=== PATIENT | male | born 1980 | race African-American/Black ===

== ENCOUNTER 2017-09-01 01:26 | Emergency (ER) | payer OTHER ==
[~2017-09-01] VITALS: Ht 188 cm; Wt 86.4 kg
[2017-09-01 01:31] VITALS: BP 195/90; PULSE 113; RESP 20; TEMP 98.8; O2SAT 98
[2017-09-01 07:31] LABS: BASOPHIL % 0.5 % (0.0-2.0); EOSINOPHIL # 0.1 TH/MM3 (0-0.4); HEMATOCRIT 46.1 % (39.0-51.0); HEMOGLOBIN 15.8 GM/DL (13.0-17.0); LYMPH % 28.1 % (9.0-44.0); LYMPHOCYTE # 1.4 TH/MM3 (1.0-4.8); MEAN CORPUSCULAR HEMOGLOBIN 30.6 PG (27.0-34.0); MEAN CORPUSCULAR HGB CONC 34.3 % (32.0-36.0); MEAN PLATELET VOLUME 8.3 FL (7.0-11.0); MONOCYTE # 0.6 TH/MM3 (0-0.9); NEUT % 58.4 % (16.0-70.0); PLATELET COUNT 212 TH/MM3 (150-450); RED BLOOD COUNT 5.18 MIL/MM3 (4.50-5.90); RED CELL DISTRIBUTION WIDTH 13.8 % (11.6-17.2); WHITE BLOOD COUNT 5.2 TH/MM3 (4.0-11.0)
[2017-09-01 07:35] VITALS: BP 175/87; PULSE 99; RESP 20; O2SAT 95
--- NOTE | 2017-09-01 07:47 | PD ---
HPI Chief Complaint: Psychiatric Symptoms Time Seen by Provider: 07:30 Travel History International Travel<30 days: No Contact w/Intl Traveler<30days: No Traveled to known affect area: No History of Present Illness HPI 36-year-old -[place] male with history of bipolar disease, is brought in under the [employer] act with reports of the patient stating he is being followed , and he is asking for help and wants to talk to someone. Patient denies any medical problems at this time. He is allergic to dust. PFSH Past Medical History Depression: Yes (as a child) Tetanus Vaccination: Unknown Influenza Vaccination: No Social History Alcohol Use: Yes Tobacco Use: Yes Substance Use: Yes (marijuana/ecstacy 08/31/17 last used) Allergies-Medications (Allergen,Severity, Reaction): Uncoded Allergies: dust (Allergy, Mild, 09/01/17) Reported Meds & Prescriptions Reported Meds & Active Scripts Active No Active Prescriptions or Reported Medications Review of Systems Except as stated in HPI: all other systems reviewed are Neg General / Constitutional: No: Fever Eyes: No: Visual changes HENT: No: Headaches Cardiovascular: No: Chest Pain or Discomfort Respiratory: No: Shortness of Breath Gastrointestinal: No: Abdominal Pain Genitourinary: No: Dysuria Musculoskeletal: No: Pain Skin: No Rash Neurologic: No: Weakness Psychiatric: No: Depression Endocrine: No: Polydipsia Hematologic/Lymphatic: No: Easy Bruising Physical Exam Narrative GENERAL: Patient appears in no acute distress. SKIN: Warm and dry. Normal color. Normal turgor. No signs of trauma HEAD: Atraumatic. Normocephalic. EYES: Pupils equal and round. No scleral icterus. No injection or drainage. ENT: No nasal bleeding or discharge. Mucous membranes pink and moist. Pharynx is clear. NECK: Trachea midline. Supple CARDIOVASCULAR: Regular rate and rhythm. RESPIRATORY: No accessory muscle use. Clear to auscultation. Breath sounds equal bilaterally. MUSCULOSKELETAL: Extremities without clubbing, cyanosis, or edema. No obvious deformities. NEUROLOGICAL: Awake and alert. No obvious cranial nerve deficits. Motor grossly within normal limits. Five out of 5 muscle strength in the arms and legs. Normal speech. Data Data Last Documented VS Vital Signs Date Time Temp Pulse Resp B/P (MAP) Pulse Ox O2 Delivery O2 Flow Rate FiO2 09/01/17 01:31 98.8 113 20 195/90 (125) 98 Orders Orders Complete Blood Count With Diff (09/01/17 05:22) Comprehensive Metabolic Panel (09/01/17 05:22) Thyroid Stimulating Hormone (09/01/17 05:22) Psych Screen (09/01/17 05:22) Drug Screen, Random Urine (09/01/17 05:22) Labs Laboratory Tests Test 09/01/17 05:25 09/01/17 07:10 Urine Opiates Screen NEG Urine Barbiturates Screen NEG Urine Amphetamines Screen POS Urine Benzodiazepines Screen NEG Urine Cocaine Screen POS Urine Cannabinoids Screen POS White Blood Count 5.2 TH/MM3 Red Blood Count 5.18 MIL/MM3 Hemoglobin 15.8 GM/DL Hematocrit 46.1 % Mean Corpuscular Volume 89.0 FL Mean Corpuscular Hemoglobin 30.6 PG Mean Corpuscular Hemoglobin Concent 34.3 % Red Cell Distribution Width 13.8 % Platelet Count 212 TH/MM3 Mean Platelet Volume 8.3 FL Neutrophils (%) (Auto) 58.4 % Lymphocytes (%) (Auto) 28.1 % Monocytes (%) (Auto) 11.0 % Eosinophils (%) (Auto) 2.0 % Basophils (%) (Auto) 0.5 % Neutrophils # (Auto) 3.0 TH/MM3 Lymphocytes # (Auto) 1.4 TH/MM3 Monocytes # (Auto) 0.6 TH/MM3 Eosinophils # (Auto) 0.1 TH/MM3 Basophils # (Auto) 0.0 TH/MM3 CBC Comment DIFF FINAL Differential Comment MDM Medical Decision Making Medical Screen Exam Complete: Yes Emergency Medical Condition: Yes Differential Diagnosis Psychosis. Bipolar. Be act. Narrative Course Psychiatric labs ordered as per protocol. Labs are within normal limits. Patient medically cleared for psychiatric evaluation. Psych screen is ordered. Scripts No Active Prescriptions or Reported Meds Condition: Stable Henyr Kimble Sep 01, 2017 07:47
[2017-09-01 08:09] LABS: ALBUMIN 4.3 GM/DL (3.4-5.0); AST (GOT) 24 U/L (15-37); BICARBONATE 27.9 MEQ/L (21.0-32.0); BLOOD UREA NITROGEN 8 MG/DL (7-18); CALCIUM 8.9 MG/DL (8.5-10.1); CHLORIDE 102 MEQ/L (98-107); CREATININE 0.97 MG/DL (0.60-1.30); GLOMERULAR FILTRATION RATE 105 ML/MIN (>89); GLUCOSE,RANDOM 88 MG/DL (74-106); SODIUM (NA) 137 MEQ/L (136-145)
[2017-09-01 08:10] LABS: ALT (GPT) 23 U/L (12-78)
[2017-09-01 08:19] LABS: ALKALINE PHOSPHATASE 63 U/L (45-117); TOTAL BILIRUBIN ADULT 1.1 MG/DL (0.2-1.0); TOTAL PROTEIN 8.2 GM/DL (6.4-8.2)
[2017-09-01 16:59] VITALS: BP 126/71; PULSE 80; RESP 20; TEMP 98.7; O2SAT 95
[2017-09-01] MEDS ORDERED: diphenhydrAMINE HCL 50 MG/ML VIAL ONE (19:52)
[2017-09-01] MEDS ORDERED: LORazepam 2 MG/ML VIAL ONE (19:52)
[2017-09-01] MEDS ORDERED: ZIPRASIDONE MESYLATE 20 MG VIAL IM ONE ×2 (19:52→20:00)
[2017-09-01] MEDS ORDERED: diphenhydrAMINE HCL 50 MG/ML VIAL IM ONE (20:00)
[2017-09-01] MEDS ORDERED: LORazepam 2 MG/ML VIAL IM ONE (20:08)
[2017-09-02 01:16] VITALS: BP 131/80; PULSE 83; RESP 18; TEMP 98.6; O2SAT 99
[2017-09-02 10:47] VITALS: BP 111/70; PULSE 103; RESP 18; TEMP 98.7; O2SAT 100
--- NOTE | 2017-09-02 12:31 | PD ---
Physical Exam Date Seen by Provider: Sep 02, 2017 Time Seen by Provider: 12:30 Narrative 36-year-old -[place] male previously cleared under the Be act for psychiatric evaluation, has been seen and evaluated by psychiatric staff and is deemed appropriate for transfer to the [facility]. Patient is going to be transferred directly to the clinic. He remains medically stable at this time. Data Data Last Documented VS Vital Signs Date Time Temp Pulse Resp B/P (MAP) Pulse Ox O2 Delivery O2 Flow Rate FiO2 09/02/17 10:47 98.7 103 18 111/70 (84) 100 Room Air Orders Orders Complete Blood Count With Diff (09/01/17 05:22) Comprehensive Metabolic Panel (09/01/17 05:22) Thyroid Stimulating Hormone (09/01/17 05:22) Psych Screen (09/01/17 05:22) Drug Screen, Random Urine (09/01/17 05:22) Diet Regular Basic (09/01/17 Breakfast) Diet Regular Basic (09/01/17 Lunch) Diet Regular Basic (09/01/17 Dinner) Lorazepam Inj (Ativan Inj) (09/01/17 19:52) Diphenhydramine Inj (Benadryl Inj) (09/01/17 19:52) Ziprasidone Inj (Geodon Inj) (09/01/17 19:52) Ziprasidone Inj (Geodon Inj) (09/01/17 20:00) Diphenhydramine Inj (Benadryl Inj) (09/01/17 20:00) Lorazepam Inj (Ativan Inj) (09/01/17 20:08) Diet Regular Basic (09/02/17 Breakfast) Diet Regular Basic (09/02/17 Lunch) Labs Laboratory Tests Test 09/01/17 05:25 09/01/17 07:10 Urine Opiates Screen NEG Urine Barbiturates Screen NEG Urine Amphetamines Screen POS Urine Benzodiazepines Screen NEG Urine Cocaine Screen POS Urine Cannabinoids Screen POS White Blood Count 5.2 TH/MM3 Red Blood Count 5.18 MIL/MM3 Hemoglobin 15.8 GM/DL Hematocrit 46.1 % Mean Corpuscular Volume 89.0 FL Mean Corpuscular Hemoglobin 30.6 PG Mean Corpuscular Hemoglobin Concent 34.3 % Red Cell Distribution Width 13.8 % Platelet Count 212 TH/MM3 Mean Platelet Volume 8.3 FL Neutrophils (%) (Auto) 58.4 % Lymphocytes (%) (Auto) 28.1 % Monocytes (%) (Auto) 11.0 % Eosinophils (%) (Auto) 2.0 % Basophils (%) (Auto) 0.5 % Neutrophils # (Auto) 3.0 TH/MM3 Lymphocytes # (Auto) 1.4 TH/MM3 Monocytes # (Auto) 0.6 TH/MM3 Eosinophils # (Auto) 0.1 TH/MM3 Basophils # (Auto) 0.0 TH/MM3 CBC Comment DIFF FINAL Differential Comment Blood Urea Nitrogen 8 MG/DL Creatinine 0.97 MG/DL Random Glucose 88 MG/DL Total Protein 8.2 GM/DL Albumin 4.3 GM/DL Calcium Level 8.9 MG/DL Alkaline Phosphatase 63 U/L Aspartate Amino Transf (AST/SGOT) 24 U/L Alanine Aminotransferase (ALT/SGPT) 23 U/L Total Bilirubin 1.1 MG/DL Sodium Level 137 MEQ/L Potassium Level 3.6 MEQ/L Chloride Level 102 MEQ/L Carbon Dioxide Level 27.9 MEQ/L Anion Gap 7 MEQ/L Estimat Glomerular Filtration Rate 105 ML/MIN Thyroid Stimulating Hormone 3rd Gen 1.400 uIU/ML MDM Medical Record Reviewed: Yes Supervised Visit with BRITTANY: Yes Narrative Course 36-year-old -[place] male previously cleared under the Be act for psychiatric evaluation, has been seen and evaluated by psychiatric staff and is deemed appropriate for transfer to the [facility]. Patient is going to be transferred directly to the clinic. He remains medically stable at this time. Referrals: [facility] Patient Instructions: General Instructions Scripts No Active Prescriptions or Reported Meds Disposition: 70 TRANSFER TO OTHER FACILITY Condition: Stable Henry Kimble Sep 02, 2017 12:31
== END 2017-09-02 13:06 ==
LOC: NEDAMB 01:26 → NEPJ 09-02 13:06
DX: Z04.6 Encounter for general psychiatric examination, requested by authority (principal); F31.9 Bipolar disorder, unspecified; F12.90 Cannabis use, unspecified, uncomplicated; F16.90 Hallucinogen use, unspecified, uncomplicated; Z72.0 Tobacco use
CPT/HCPCS: 80053; 80307; 84443; 85025; 99284; J1200; J3486; J2060